=== PATIENT | female | born 1985 | race Caucasian/White ===

== ENCOUNTER 2018-02-12 09:34 | Inpatient (IN) | payer OTHER ==
[~2018-02-12] VITALS: Ht 165.1 cm; Wt 102.7 kg
[2018-02-12 09:46] VITALS: Ht 165.1 cm; Wt 102.7 kg
[2018-02-12 10:49] LABS: PLATELET COUNT 382 x10^3mcL (130-400)
[2018-02-12 10:53] LABS: CALCIUM 8.8 mg/dL (8.5-10.1); CARBON DIOXIDE 26.3 mmol/L (21-32); CHLORIDE SERUM 105 mmol/L (98-107); CREATININE SERUM 0.7 mg/dL (0.6-1.0); GFR1 > 60 mL/min; GLUCOSE SERUM 86 mg/dL (74-106); POTASSIUM SERUM 3.9 mmol/L (3.5-5.1); SODIUM SERUM 137 mmol/L (136-145)
[2018-02-12 10:55] LABS: BASOPHIL % 0 % (0-2); RED CELL DISTRIBUTION WIDTH 15.5 % (11.5-14.5)
[2018-02-12 10:58] LABS: ALKALINE PHOSPHATASE 91 U/L (46-116); ALT/SGPT 18 U/L (14-59); AMYLASE 39 U/L (25-115); AST/SGOT 10 U/L (15-37); BILIRUBIN TOTAL 0.43 mg/dL (0.20-1.00); LIPASE 95 IU/L (73-393); TOTAL PROTEIN, SERUM 7.5 g/dL (6.4-8.2)
[2018-02-12] MEDS ORDERED: CANASA1000 MG RC (12:33)
[2018-02-12] MEDS ORDERED: UCERIS9 MG PO (12:33)
[2018-02-12 12:48] LABS: UA SPECIFIC GRAVITY 1.025 (1.005-1.035); microscopic required? YES; urine erythrocyte 1+ (NEGATIVE)
[2018-02-12 14:24] VITALS: BP 149/100
[2018-02-12 17:29] VITALS: BP 109/67
[2018-02-12 21:48] VITALS: BP 106/63
[2018-02-13 05:16] VITALS: BP 97/57
[2018-02-13 06:46] LABS: CALCIUM 7.7 mg/dL (8.5-10.1); CARBON DIOXIDE 24.4 mmol/L (21-32); CHLORIDE SERUM 107 mmol/L (98-107); CREATININE SERUM 0.8 mg/dL (0.6-1.0); GFR1 > 60 mL/min; GLUCOSE SERUM 83 mg/dL (74-106); MAGNESIUM 1.8 mg/dL (1.8-2.4); SODIUM SERUM 140 mmol/L (136-145)
[2018-02-13 09:09] VITALS: BP 100/61
[2018-02-13 13:01] LABS: BASOPHIL % 0.5 % (0-2); PLATELET COUNT 347 x10^3mcL (130-400)
[2018-02-13 13:03] LABS: RED CELL DISTRIBUTION WIDTH 15.6 % (11.5-14.5)
[2018-02-13 17:56] VITALS: BP 101/67
[2018-02-13 21:30] VITALS: BP 113/79
[2018-02-14 05:57] VITALS: BP 97/60
[2018-02-14 06:45] LABS: BASOPHIL % 0.5 % (0-2); PLATELET COUNT 368 x10^3mcL (130-400)
[2018-02-14 06:52] LABS: RED CELL DISTRIBUTION WIDTH 15.6 % (11.5-14.5)
[2018-02-14 07:20] LABS: ALBUMIN 2.7 g/dL (3.4-5.0); ALKALINE PHOSPHATASE 90 U/L (46-116); ALT/SGPT 12 U/L (14-59); AST/SGOT 15 U/L (15-37); BILIRUBIN TOTAL 0.4 mg/dL (0.20-1.00); CARBON DIOXIDE 25.7 mmol/L (21-32); CHLORIDE SERUM 106 mmol/L (98-107); CREATININE SERUM 0.8 mg/dL (0.6-1.0); GFR1 > 60 mL/min; GLUCOSE SERUM 89 mg/dL (74-106); SODIUM SERUM 140 mmol/L (136-145); TOTAL PROTEIN, SERUM 6.9 g/dL (6.4-8.2)
[2018-02-14 09:27] VITALS: BP 112/78
[2018-02-14 10:48] LABS: C REACTIVE PROTEIN 8.6 mg/dL (<=0.9)
[2018-02-14 16:40] VITALS: BP 115/70
== END 2018-02-14 17:51 | disposition short-term general hospital (02) | DRG 387 ==
LOC: ED 09:34 → MU 13:06
PROVIDERS: Internal Medicine Gastroenterology; Internal Medicine Pulmonary Disease; Specialist
PROC: 0DBP8ZX Excision of Rectum, Via Natural or Artificial Opening Endoscopic, Diagnostic (ICD-10-PCS; principal; 2018-02-14 10:15)
DX: K51.911 Ulcerative colitis, unspecified with rectal bleeding (principal); D72.829 Elevated white blood cell count, unspecified; Z88.8 Allergy status to other drugs, medicaments and biological substances; E66.9 Obesity, unspecified; R06.00 Dyspnea, unspecified
CPT/HCPCS: 45330; 83880; 86480; 87046; 87046-59; J0696; J1200; J1610; J1885; J1956; J2250; J2310; J2405; J2920; J3010; J3490; J7030; J7120; Q9967

== ENCOUNTER 2018-10-07 03:22 | Emergency (ER) | payer OTHER ==
[~2018-10-07] VITALS: Ht 165.1 cm; Wt 98.5 kg
[~2018-10-07 03:22] MED LIST: CANASA1000 MG RC; UCERIS9 MG PO
[2018-10-07 03:34] VITALS: Ht 165.1 cm; Wt 98.5 kg
[2018-10-07 05:56] VITALS: BP 125/74
== END 2018-10-07 05:56 | disposition home or self-care (01) ==
LOC: ED 03:22
DX: K50.90 Crohn's disease, unspecified, without complications (principal); R51 Headache; Z88.5 Allergy status to narcotic agent; Z88.3 Allergy status to other anti-infective agents
CPT/HCPCS: J1885; J2405; J7030

== ENCOUNTER 2020-07-01 12:19 | Inpatient (IN) | payer BC, SELFPAY ==
[~2020-07-01] VITALS: Ht 165.1 cm; Wt 116.6 kg
[2020-07-01 12:21] VITALS: Ht 165.1 cm; Wt 116.6 kg
[2020-07-01 13:33] LABS: BASOPHIL % 0.4 % (0.2-1.3); PLATELET COUNT 165 x10^3mcL (179-408); RED CELL DISTRIBUTION WIDTH 13.2 % (12.3-17.7)
[2020-07-01 13:41] LABS: ALKALINE PHOSPHATASE 76 U/L (46-116); ALT/SGPT 104 U/L (14-59); AST/SGOT 124 U/L (15-37); BILIRUBIN TOTAL 0.4 mg/dL (0.20-1.00); C REACTIVE PROTEIN 9.8 mg/dL (<=0.9); CALCIUM 8.3 mg/dL (8.5-10.1); CHLORIDE SERUM 97 mmol/L (98-107); CREATININE SERUM 0.8 mg/dL (0.6-1.0); GFR1 > 60 mL/min; GLUCOSE SERUM 103 mg/dL (74-106); LACTIC DEHYDROGENASE (LDH) 369 U/L (100-190); POTASSIUM SERUM 3.5 mmol/L (3.5-5.1); SODIUM SERUM 135 mmol/L (136-145); TOTAL PROTEIN, SERUM 7.5 g/dL (6.4-8.2)
[2020-07-01 13:48] LABS: ALBUMIN 3.2 g/dL (3.4-5.0)
[2020-07-01 14:11] LABS: UA SPECIFIC GRAVITY 1.015 (1.005-1.035); microscopic required? YES; urine erythrocyte 3+ (NEGATIVE)
[2020-07-01 17:35] LABS: AMPHETAMINE QUAL UR NONE DETECTED (See below)
[2020-07-01] MEDS ORDERED: CYMBALTA20 M1 PO (21:56)
[2020-07-01] MEDS ORDERED: ZYRTEC ALLERGY10 MG PO (21:57)
[2020-07-01 23:18] VITALS: BP 98/71
[2020-07-02 06:31] VITALS: BP 109/70
[2020-07-02 07:49] LABS: BASOPHIL % 0.4 % (0-2); PLATELET COUNT 168 x10^3mcL (130-400); RED CELL DISTRIBUTION WIDTH 12.8 % (11.5-14.5)
[2020-07-02 08:23] LABS: ALKALINE PHOSPHATASE 69 U/L (46-116); ALT/SGPT 113 U/L (14-59); AST/SGOT 137 U/L (15-37); BILIRUBIN TOTAL 0.43 mg/dL (0.20-1.00); C REACTIVE PROTEIN 8.7 mg/dL (<=0.9); CALCIUM 8.7 mg/dL (8.5-10.1); CARBON DIOXIDE 23.3 mmol/L (21-32); CHLORIDE SERUM 100 mmol/L (98-107); CREATININE SERUM 0.7 mg/dL (0.6-1.0); GFR1 > 60 mL/min; GLUCOSE SERUM 118 mg/dL (74-106); MAGNESIUM 2.4 mg/dL (1.8-2.4); PHOSPHOROUS 3.3 mg/dL (2.5-4.9); POTASSIUM SERUM 4.3 mmol/L (3.5-5.1); SODIUM SERUM 134 mmol/L (136-145); TOTAL PROTEIN, SERUM 7.5 g/dL (6.4-8.2)
[2020-07-02 08:32] LABS: ALBUMIN 2.8 g/dL (3.4-5.0)
[2020-07-02 09:01] VITALS: BP 128/84
[2020-07-02 12:04] VITALS: BP 112/77
[2020-07-02 16:23] VITALS: BP 100/73
[2020-07-02 21:21] VITALS: BP 104/62
[2020-07-03 06:12] VITALS: BP 95/52
[2020-07-03 08:22] VITALS: BP 102/65
[2020-07-03 09:04] LABS: BASOPHIL % 0.2 % (0.2-1.3); PLATELET COUNT 197 x10^3mcL (179-408); RED CELL DISTRIBUTION WIDTH 13.4 % (12.3-17.7)
[2020-07-03 09:28] LABS: ALKALINE PHOSPHATASE 66 U/L (46-116); ALT/SGPT 103 U/L (14-59); AST/SGOT 106 U/L (15-37); BILIRUBIN TOTAL 0.3 mg/dL (0.20-1.00); C REACTIVE PROTEIN 4.5 mg/dL (<=0.9); CALCIUM 8.2 mg/dL (8.5-10.1); CARBON DIOXIDE 21.2 mmol/L (21-32); CHLORIDE SERUM 99 mmol/L (98-107); CREATININE SERUM 0.8 mg/dL (0.6-1.0); GFR1 > 60 mL/min; GLUCOSE SERUM 100 mg/dL (74-106); MAGNESIUM 2.2 mg/dL (1.8-2.4); PHOSPHOROUS 3.6 mg/dL (2.5-4.9); POTASSIUM SERUM 3.5 mmol/L (3.5-5.1); SODIUM SERUM 133 mmol/L (136-145); TOTAL PROTEIN, SERUM 6.8 g/dL (6.4-8.2)
[2020-07-03 10:18] LABS: ALBUMIN 2.7 g/dL (3.4-5.0)
[2020-07-03 13:01] VITALS: BP 103/46
[2020-07-03 15:34] VITALS: BP 102/74
[2020-07-03 22:04] VITALS: BP 103/60
[2020-07-04 03:21] VITALS: BP 109/64
[2020-07-04 06:22] VITALS: BP 100/43
[2020-07-04 07:36] LABS: BASOPHIL % 0.1 % (0.2-1.3); PLATELET COUNT 223 x10^3mcL (179-408); RED CELL DISTRIBUTION WIDTH 13.5 % (12.3-17.7)
[2020-07-04 08:06] LABS: BILIRUBIN DIRECT 0.18 mg/dL (0.0-0.2); BILIRUBIN TOTAL 0.4 mg/dL (0.20-1.00); TOTAL PROTEIN, SERUM 7.3 g/dL (6.4-8.2)
[2020-07-04 08:13] LABS: ALKALINE PHOSPHATASE 71 U/L (46-116); ALT/SGPT 97 U/L (14-59); AST/SGOT 79 U/L (15-37); BILIRUBIN TOTAL 0.4 mg/dL (0.20-1.00); C REACTIVE PROTEIN 10.9 mg/dL (<=0.9); CALCIUM 8.5 mg/dL (8.5-10.1); CARBON DIOXIDE 24.9 mmol/L (21-32); CHLORIDE SERUM 99 mmol/L (98-107); CREATININE SERUM 0.8 mg/dL (0.6-1.0); GFR1 > 60 mL/min; GLUCOSE SERUM 93 mg/dL (74-106); MAGNESIUM 2.4 mg/dL (1.8-2.4); PHOSPHOROUS 3.8 mg/dL (2.5-4.9); POTASSIUM SERUM 3.6 mmol/L (3.5-5.1); SODIUM SERUM 136 mmol/L (136-145); TOTAL PROTEIN, SERUM 7.2 g/dL (6.4-8.2)
[2020-07-04 08:15] LABS: ALBUMIN 2.9 g/dL (3.4-5.0)
[2020-07-04 08:28] LABS: ALBUMIN 2.8 g/dL (3.4-5.0)
[2020-07-04 08:58] VITALS: BP 113/75
[2020-07-04 12:27] VITALS: BP 105/66
[2020-07-04 17:04] VITALS: BP 119/78
[2020-07-04 21:39] VITALS: BP 103/67
[2020-07-05 06:01] VITALS: BP 110/77
[2020-07-05 07:43] LABS: BASOPHIL % 0.1 % (0.2-1.3); PLATELET COUNT 239 x10^3mcL (179-408); RED CELL DISTRIBUTION WIDTH 13.7 % (12.3-17.7)
[2020-07-05 08:08] LABS: CHLORIDE SERUM 103 mmol/L (98-107); CREATININE SERUM 0.7 mg/dL (0.6-1.0); GFR1 > 60 mL/min; GLUCOSE SERUM 101 mg/dL (74-106); SODIUM SERUM 141 mmol/L (136-145)
[2020-07-05 08:21] LABS: CARBON DIOXIDE 27.6 mmol/L (21-32)
[2020-07-05 08:47] VITALS: BP 96/68
[2020-07-05 09:00] LABS: BILIRUBIN DIRECT 0.17 mg/dL (0.0-0.2); BILIRUBIN TOTAL 0.38 mg/dL (0.20-1.00); TOTAL PROTEIN, SERUM 7.1 g/dL (6.4-8.2)
[2020-07-05 09:06] LABS: ALBUMIN 2.6 g/dL (3.4-5.0)
[2020-07-05 12:27] VITALS: BP 107/73
[2020-07-05 16:48] VITALS: BP 105/70
[2020-07-05 21:00] VITALS: BP 102/63
[2020-07-06 05:44] VITALS: BP 124/64
[2020-07-06 08:03] LABS: BASOPHIL % 0.2 % (0.2-1.3); PLATELET COUNT 310 x10^3mcL (179-408); RED CELL DISTRIBUTION WIDTH 13.4 % (12.3-17.7)
[2020-07-06 08:16] LABS: BILIRUBIN DIRECT 0.16 mg/dL (0.0-0.2); BILIRUBIN TOTAL 0.46 mg/dL (0.20-1.00); TOTAL PROTEIN, SERUM 6.9 g/dL (6.4-8.2)
[2020-07-06 08:18] LABS: ALBUMIN 2.6 g/dL (3.4-5.0)
[2020-07-06 08:51] VITALS: BP 102/55
[2020-07-06 08:52] LABS: CALCIUM 8.3 mg/dL (8.5-10.1); CARBON DIOXIDE 26.2 mmol/L (21-32); CHLORIDE SERUM 101 mmol/L (98-107); CREATININE SERUM 0.6 mg/dL (0.6-1.0); GFR1 > 60 mL/min; GLUCOSE SERUM 92 mg/dL (74-106); POTASSIUM SERUM 3.4 mmol/L (3.5-5.1); SODIUM SERUM 137 mmol/L (136-145)
[2020-07-06 11:56] VITALS: BP 105/60
[2020-07-06 16:36] VITALS: BP 104/56
[2020-07-06 21:10] VITALS: BP 105/55
[2020-07-07 05:30] VITALS: BP 115/65
[2020-07-07 07:43] LABS: BASOPHIL % 0.1 % (0.2-1.3); PLATELET COUNT 358 x10^3mcL (179-408); RED CELL DISTRIBUTION WIDTH 13.6 % (12.3-17.7)
[2020-07-07 08:08] LABS: CALCIUM 8.4 mg/dL (8.5-10.1); CARBON DIOXIDE 27.9 mmol/L (21-32); CHLORIDE SERUM 101 mmol/L (98-107); CREATININE SERUM 0.7 mg/dL (0.6-1.0); GFR1 > 60 mL/min; GLUCOSE SERUM 100 mg/dL (74-106); POTASSIUM SERUM 3.6 mmol/L (3.5-5.1); SODIUM SERUM 139 mmol/L (136-145)
[2020-07-07 08:30] LABS: ALBUMIN 2.6 g/dL (3.4-5.0); BILIRUBIN DIRECT 0.2 mg/dL (0.0-0.2); BILIRUBIN TOTAL 0.53 mg/dL (0.20-1.00); TOTAL PROTEIN, SERUM 6.9 g/dL (6.4-8.2)
[2020-07-07 09:00] VITALS: BP 98/64
[2020-07-07 14:33] VITALS: BP 111/74
[2020-07-07 17:54] VITALS: BP 120/60
[2020-07-07 21:50] VITALS: BP 97/51
[2020-07-08 05:10] VITALS: BP 102/57
[2020-07-08 07:44] LABS: BASOPHIL % 0.2 % (0.2-1.3); RED CELL DISTRIBUTION WIDTH 13.2 % (12.3-17.7)
[2020-07-08 08:13] LABS: CALCIUM 8.7 mg/dL (8.5-10.1); CARBON DIOXIDE 31.1 mmol/L (21-32); CHLORIDE SERUM 101 mmol/L (98-107); CREATININE SERUM 0.8 mg/dL (0.6-1.0); GFR1 > 60 mL/min; GLUCOSE SERUM 92 mg/dL (74-106); POTASSIUM SERUM 3.4 mmol/L (3.5-5.1); SODIUM SERUM 136 mmol/L (136-145)
[2020-07-08 09:20] VITALS: BP 98/57
[2020-07-08 11:04] LABS: PLATELET COUNT 463 x10^3mcL (179-408)
[2020-07-08 12:36] VITALS: BP 105/63
[2020-07-08 16:27] VITALS: BP 113/71
[2020-07-08 20:11] VITALS: BP 115/72
[2020-07-09 05:06] VITALS: BP 103/67
[2020-07-09 08:26] VITALS: BP 92/55
[2020-07-09 08:37] LABS: BASOPHIL % 0.2 % (0.2-1.3); RED CELL DISTRIBUTION WIDTH 13.2 % (12.3-17.7)
[2020-07-09 08:53] LABS: PLATELET COUNT 488 x10^3mcL (179-408)
[2020-07-09 09:46] LABS: CALCIUM 8.7 mg/dL (8.5-10.1); CHLORIDE SERUM 101 mmol/L (98-107); CREATININE SERUM 0.6 mg/dL (0.6-1.0); GFR1 > 60 mL/min; GLUCOSE SERUM 90 mg/dL (74-106); SODIUM SERUM 140 mmol/L (136-145)
[2020-07-09 09:51] LABS: POTASSIUM SERUM 3.9 mmol/L (3.5-5.1)
[2020-07-09] MEDS ORDERED: VENTOLIN H0.09 MG/A1 INH (10:38)
[2020-07-09] MEDS ORDERED: DECADRON4 MG PO (10:39)
[2020-07-09 11:43] VITALS: BP 92/55
== END 2020-07-09 12:00 | disposition home or self-care (01) | DRG 871 ==
LOC: ED 12:19 → DU 15:29
PROVIDERS: Emergency Medicine; Internal Medicine Critical Care Medicine; ADMIT Family Medicine; ATTEND Family Medicine
PROC: XW13325 Transfusion of Convalescent Plasma (Nonautologous) into Peripheral Vein, Percutaneous Approach, New Technology Group 5 (ICD-10-PCS; principal; 2020-07-05)
DX: A41.9 Sepsis, unspecified organism (principal); U07.1 COVID-19; J12.89 Other viral pneumonia; J96.01 Acute respiratory failure with hypoxia; Z88.8 Allergy status to other drugs, medicaments and biological substances
CPT/HCPCS: 36600; 83880; 85378; 87804; G0378; J0456; J0696; J1100; J1650; J1885; J1940; J2270; J2405; J3535; J7050; J7060; Q0162; Q0163; U0003